=== PATIENT | male | born 1975 | race Hispanic/Latino ===

== ENCOUNTER → 2018-03-05 | Outpatient (CLI) | payer BC | END | disposition home or self-care (01) | LOC: OIH 12:45 | PROVIDERS: ATTEND Internal Medicine | DX: M47.812 Spondylosis without myelopathy or radiculopathy, cervical region (principal); M50.00 Cervical disc disorder with myelopathy, unspecified cervical region | CPT/HCPCS: 72050 ==

== ENCOUNTER → 2018-04-06 | Outpatient (CLI) | payer BC | END | disposition home or self-care (01) | LOC: RAH 12:40 | PROVIDERS: ATTEND Internal Medicine | DX: M47.12 Other spondylosis with myelopathy, cervical region (principal); M48.02 Spinal stenosis, cervical region; M50.223 Other cervical disc displacement at C6-C7 level; M25.78 Osteophyte, vertebrae | CPT/HCPCS: 72141 ==

== ENCOUNTER → 2020-02-02 | Outpatient (CLI) | payer BC | END | disposition home or self-care (01) | LOC: OIH 09:01 | PROVIDERS: ATTEND Internal Medicine | DX: S69.91XA Unspecified injury of right wrist, hand and finger(s), initial encounter (principal); M48.02 Spinal stenosis, cervical region; M47.22 Other spondylosis with radiculopathy, cervical region; X58.XXXA Exposure to other specified factors, initial encounter; Y93.89 Activity, other specified; Y92.89 Other specified places as the place of occurrence of the external cause; Y99.8 Other external cause status | CPT/HCPCS: 72040; 73100 ==

== ENCOUNTER 2023-02-06 06:42 | Day surgery (SDC) | payer BC ==
[2023-01-31 12:11] LABS: BASOPHILS # (AUTO) 0.04 K/uL (0.00-0.20); BASOPHILS % (AUTO) 0.7 % (0.0-5.0); EOSINOPHILS # (AUTO) 0.12 K/uL (0.00-0.70); HEMATOCRIT 45.6 % (42-54); IMMATURE GRANULOCYTE ABSOLUTE 0.02 K/uL (0-1); LYMPHOCYTES # (AUTO) 1.7 K/uL (1.0-4.8); LYMPHOCYTES % (AUTO) 28.6 % (21.0-51.0); MEAN CORPUSCULAR HEMOGLOBIN 29.9 pg (27.0-33.0); MEAN CORPUSCULAR HGB CONC 34.6 g/dL (32.0-36.0); MEAN CORPUSCULAR VOLUME 86.2 fL (79-99); MONOCYTES # (AUTO) 0.4 K/uL (0.1-1.0); MONOCYTES % (AUTO) 6.9 % (3.0-13.0); NEUTROPHILS # (AUTO) 3.8 K/uL (1.8-7.7); NEUTROPHILS % (AUTO) 61.5 % (40.0-77.0); PLATELET COUNT (AUTO) 211 K/uL (130-400); RED BLOOD CELL COUNT(AUTO) 5.29 MIL/uL (4.50-6.20); WHITE BLOOD COUNT (AUTO) 6.1 K/uL (4.8-10.8)
[2023-01-31 12:23] LABS: INR < 0.93 (0.85-1.15); PROTHROMBIN TIME 10.7 SEC (9.6-11.6)
[2023-01-31 12:25] LABS: PARTIAL THROMBOPLASTIN TIME 27.9 SEC (26.3-35.5)
[2023-01-31 12:31] LABS: CREATININE 0.8 mg/dL (0.5-1.5); POTASSIUM 3.7 mmol/L (3.5-5.1)
[2023-01-31 12:46] VITALS: BP 147/77; PULSE 96; RESP 18
[~2023-02-06] VITALS: Ht 165.1 cm; Wt 102.9 kg
[2023-02-06] VITALS (18 sets, daily range): BP systolic 84–139; BP diastolic 48–77; PULSE 59–84; RESP 10–18
[~2023-02-06 06:42] MED LIST: GLIM4TAB36 PO; INDO-16 PO; METF-444 PO; PANT40TA54 PO
[2023-02-06] MEDS ORDERED: 0.9%NACL 1000ML 1,000 ML IV ONE (07:07)
[2023-02-06] MEDS ORDERED: CEFAZOLIN SODIUM 1 GM VIAL ONE (07:07)
[2023-02-06] MEDS ORDERED: BACITRACIN 28.4 GM OINT TP ONE (07:35)
[2023-02-06] MEDS ORDERED: BUPIVACAINE/PF 0.25% 30ML VIAL IJ ONE (07:35)
[2023-02-06] MEDS ORDERED: SUCCINYLCHOLINE 200MG/10ML SYR ONE ×2 (08:27→08:50)
[2023-02-06] MEDS ORDERED: DEXAMETHASONE SOD PHOSPHATE 10MG/ML 1ML VIAL ONE (08:27)
[2023-02-06] MEDS ORDERED: LIDOCAINE PF 100MG/5ML (2%) SYRINGE 5ML ONE ×2 (08:27→08:30)
[2023-02-06] MEDS ORDERED: ONDANSETRON 4MG INJ ONE (08:28)
[2023-02-06] MEDS ORDERED: MIDAZOLAM HCL 1 MG/ML 2ML VIAL ONE (08:28)
[2023-02-06] MEDS ORDERED: GLYCOPYRROLATE 1 MG/5 ML SYRINGE ONE (08:28)
[2023-02-06] MEDS ORDERED: NEOSTIGMINE 5MG/5ML SYR IV ONE (08:28)
[2023-02-06] MEDS ORDERED: PROPOFOL 10 MG/ML 20ML VIAL IV ONE (08:28)
[2023-02-06] MEDS ORDERED: FENTANYL CITRATE PF 50 MCG/1 ML 2ML VIAL ONE ×2 (08:28→09:42)
[2023-02-06] MEDS ORDERED: ROCURONIUM 10MG/1ML SYR 10 MG/ML ML ONE (08:28)
[2023-02-06] MEDS ORDERED: CEFAZOLIN SODIUM 2 GM VIAL IVPB ONE (08:58)
[2023-02-06] MEDS ORDERED: PHENYLEPHRINE HCL 10 MG/ML 1ML VIAL IV ONE (09:40)
== END 2023-02-06 11:35 | disposition home or self-care (01) ==
LOC: DAH 06:42
PROVIDERS: ATTEND Urology
DX: N47.1 Phimosis (principal); E11.9 Type 2 diabetes mellitus without complications; M19.90 Unspecified osteoarthritis, unspecified site; K21.9 Gastro-esophageal reflux disease without esophagitis; F17.200 Nicotine dependence, unspecified, uncomplicated; Z79.01 Long term (current) use of anticoagulants; Z79.899 Other long term (current) drug therapy; Z79.84 Long term (current) use of oral hypoglycemic drugs; Z98.890 Other specified postprocedural states
CPT/HCPCS: 93005; 80048; 85025; 85610; 85730; 36415; 54161; 82948 ×2; A4606; J3010 ×2; J0690 ×2; J0330 ×2; J3490 ×2; J1100; J2710; J7030; J2001 ×2; J2250; J2704; J2405; J2371; A4215; A4223; A4222; A4221; A4663; A4600

== ENCOUNTER → 2023-12-03 | Outpatient (CLI) | payer BC ==
[~2023-12-03] MED LIST changes: +ACET-66 PO; +AEC81 PO; +ATOR40TA69 PO; +GABA100C PO; -INDO-16 PO; +LOSA25TA41 PO
== END | disposition home or self-care (01) ==
LOC: LAB 09:01
PROVIDERS: ATTEND Internal Medicine Cardiovascular Disease
DX: E11.9 Type 2 diabetes mellitus without complications (principal); E78.5 Hyperlipidemia, unspecified
CPT/HCPCS: 36415; 84443; 85378

== ENCOUNTER 2023-12-08 14:06 | Emergency (ER) | payer BC, OTHER ==
[~2023-12-08] VITALS: Ht 165.1 cm; Wt 104.3 kg
[2023-12-08 15:10] LABS: BASOPHILS # (AUTO) 0.03 K/uL (0.00-0.20); BASOPHILS % (AUTO) 0.5 % (0.0-5.0); EOSINOPHILS # (AUTO) 0.19 K/uL (0.00-0.70); EOSINOPHILS % (AUTO) 3.4 % (0.0-8.0); IMMATURE GRANULOCYTE ABSOLUTE 0.01 K/uL (0-1); LYMPHOCYTES # (AUTO) 1.6 K/uL (1.0-4.8); LYMPHOCYTES % (AUTO) 27.9 % (21.0-51.0); MEAN CORPUSCULAR HEMOGLOBIN 27.5 pg (27.0-33.0); MEAN CORPUSCULAR HGB CONC 33.2 g/dL (32.0-36.0); MONOCYTES # (AUTO) 0.5 K/uL (0.1-1.0); MONOCYTES % (AUTO) 8.1 % (3.0-13.0); NEUTROPHILS # (AUTO) 3.4 K/uL (1.8-7.7); NEUTROPHILS % (AUTO) 59.9 % (40.0-77.0); PLATELET COUNT (AUTO) 181 K/uL (130-400); RED BLOOD CELL COUNT(AUTO) 4.94 MIL/uL (4.50-6.20); RED CELL DISTRIBUTION WIDTH 14.2 % (11.0-15.5); WHITE BLOOD COUNT (AUTO) 5.6 K/uL (4.8-10.8)
[2023-12-08 15:23] LABS: CREATININE 0.8 mg/dL (0.5-1.3); POTASSIUM 3.9 mmol/L (3.5-5.1)
[2023-12-08 15:28] LABS: ALBUMIN 3.5 g/dL (3.5-5.0); BILIRUBIN,TOTAL 0.3 mg/dL (0.2-1.0); TOTAL PROTEIN, SERUM 7.3 g/dL (6.0-8.3)
[2023-12-08 15:35] LABS: PROTHROMBIN TIME 10.8 SEC (9.6-11.6)
[2023-12-08 15:36] LABS: PARTIAL THROMBOPLASTIN TIME 25.7 SEC (26.3-35.5)
[2023-12-08] MEDS ORDERED: HYDROCODONE/ACETAMINOPHEN 5/325 MG TAB PO ONE (16:00)
[2023-12-08] MEDS ORDERED: ONDANSETRON ODT 4MG TAB SL ONE (16:00)
[2023-12-08] MEDS ORDERED: IOHEXOL-350 75 ML VIAL IV ONE ×2 (16:11→16:35)
[2023-12-08 16:39] LABS: APPEARANCE,URINE CLEAR (CLEAR); BILIRUBIN,URINE NEGATIVE (NEGATIVE); COLOR,URINE COLORLESS (YELLOW); GLUCOSE, URINE (UA) >=1000 mg/dL (NEGATIVE); KETONES,URINE 5 mg/dL (NEGATIVE); LEUKOCYTE ESTERASE ,URINE NEGATIVE Leu/uL (NEGATIVE); NITRATE,URINE NEGATIVE (NEGATIVE); OCCULT BLOOD,URINE NEGATIVE (NEGATIVE); PROTEIN,URINE NEGATIVE (NEGATIVE); UROBILINOGEN,URINE 0.2 mg/dL (0.2-1.0)
[2023-12-08 16:46] LABS: ADD UA MICROSCOPIC YES
[2023-12-08 16:48] LABS: MUCUS,URINE RARE LPF (None Seen); RBC,URINE 0-1 /HPF (0-1); WBC,URINE 0-1 /HPF (0-1)
[2023-12-08 18:15] VITALS: BP 148/89; PULSE 95; RESP 17; O2SAT 99
== END 2023-12-08 18:14 | disposition home or self-care (01) ==
LOC: EDH 14:06
DX: R79.89 Other specified abnormal findings of blood chemistry (principal); E11.9 Type 2 diabetes mellitus without complications; E78.00 Pure hypercholesterolemia, unspecified; K21.9 Gastro-esophageal reflux disease without esophagitis; I25.2 Old myocardial infarction; Z79.82 Long term (current) use of aspirin; Z79.84 Long term (current) use of oral hypoglycemic drugs; Z79.899 Other long term (current) drug therapy; Z95.1 Presence of aortocoronary bypass graft
CPT/HCPCS: 99284; 71270; 80053; 85025; 85610; 85730; 81001; 36415; Q9967 ×2

== ENCOUNTER 2024-01-09 16:58 | Emergency (ER) | payer BC ==
[~2024-01-09] VITALS: Ht 165.1 cm; Wt 104.3 kg
[2024-01-09 17:47] LABS: BASOPHILS # (AUTO) 0.04 K/uL (0.00-0.20); BASOPHILS % (AUTO) 0.6 % (0.0-5.0); EOSINOPHILS # (AUTO) 0.18 K/uL (0.00-0.70); EOSINOPHILS % (AUTO) 2.6 % (0.0-8.0); HEMATOCRIT 44.3 % (42-54); IMMATURE GRANULOCYTE ABSOLUTE 0.02 K/uL (0-1); LYMPHOCYTES # (AUTO) 1.9 K/uL (1.0-4.8); LYMPHOCYTES % (AUTO) 27.6 % (21.0-51.0); MEAN CORPUSCULAR HEMOGLOBIN 27.2 pg (27.0-33.0); MEAN CORPUSCULAR HGB CONC 33.2 g/dL (32.0-36.0); MONOCYTES # (AUTO) 0.5 K/uL (0.1-1.0); MONOCYTES % (AUTO) 6.8 % (3.0-13.0); NEUTROPHILS # (AUTO) 4.3 K/uL (1.8-7.7); NEUTROPHILS % (AUTO) 62.1 % (40.0-77.0); PLATELET COUNT (AUTO) 195 K/uL (130-400); RED CELL DISTRIBUTION WIDTH 14.2 % (11.0-15.5); WHITE BLOOD COUNT (AUTO) 6.9 K/uL (4.8-10.8)
[2024-01-09 17:56] LABS: CREATININE 1.1 mg/dL (0.5-1.3); POTASSIUM 4.2 mmol/L (3.5-5.1)
[2024-01-09 17:57] LABS: INR 0.96 (0.85-1.15); PROTHROMBIN TIME 10.4 SEC (9.6-11.6)
[2024-01-09 17:58] LABS: PARTIAL THROMBOPLASTIN TIME 25.6 SEC (26.3-35.5)
[2024-01-09] MEDS ORDERED: IOHEXOL-350 75 ML VIAL IV ONE (18:09)
[2024-01-09 19:39] VITALS: BP 138/81; PULSE 75; RESP 18; O2SAT 98
[2024-01-09 19:45] LABS: ADD UA MICROSCOPIC YES; APPEARANCE,URINE CLEAR (CLEAR); BILIRUBIN,URINE NEGATIVE (NEGATIVE); COLOR,URINE COLORLESS (YELLOW); GLUCOSE, URINE (UA) >=1000 mg/dL (NEGATIVE); KETONES,URINE 5 mg/dL (NEGATIVE); LEUKOCYTE ESTERASE ,URINE NEGATIVE Leu/uL (NEGATIVE); NITRATE,URINE NEGATIVE (NEGATIVE); OCCULT BLOOD,URINE NEGATIVE (NEGATIVE); PH,URINE 5.5 (5.0-8.0); PROTEIN,URINE NEGATIVE (NEGATIVE); UROBILINOGEN,URINE 0.2 mg/dL (0.2-1.0)
[2024-01-09 19:48] LABS: MUCUS,URINE RARE LPF (None Seen); RBC,URINE 0-1 /HPF (0-1); WBC,URINE 0-1 /HPF (0-1)
== END 2024-01-09 20:23 | disposition home or self-care (01) ==
LOC: EDH 16:58
DX: R07.89 Other chest pain (principal); E11.9 Type 2 diabetes mellitus without complications; K21.9 Gastro-esophageal reflux disease without esophagitis; E78.00 Pure hypercholesterolemia, unspecified; I11.9 Hypertensive heart disease without heart failure; I25.2 Old myocardial infarction; M79.662 Pain in left lower leg; M79.661 Pain in right lower leg; Z98.890 Other specified postprocedural states; Z95.1 Presence of aortocoronary bypass graft
CPT/HCPCS: 99285; 93970; 71270; 84484 ×2; 80048; 85025; 85610; 85730; 81001; 36415; 93005; Q9967

== ENCOUNTER → 2024-01-09 | Outpatient (CLI) | payer BC | END | disposition home or self-care (01) | LOC: LAB 09:40 | PROVIDERS: ATTEND Internal Medicine Cardiovascular Disease | DX: E11.9 Type 2 diabetes mellitus without complications (principal); E78.5 Hyperlipidemia, unspecified; I21.4 Non-ST elevation (NSTEMI) myocardial infarction | CPT/HCPCS: 36415; 84439; 85378 ==

== ENCOUNTER → 2024-05-06 | Outpatient (CLI) | payer BC ==
--- NOTE | 2024-05-06 10:50 | HMCIMG ---
US ABDOMINAL COMPLETE HISTORY: Left upper abdominal pain COMPARISON: 11/03/2023 TECHNIQUE: Multiple transverse and longitudinal ultrasound images of the abdomen were obtained. FINDINGS: Midportion of the abdominal aorta is not well seen due to overlying bowel gas limiting evaluation. Flow is seen in the inferior vena cava. The visualized portion of the pancreas is within normal limits. Liver is echogenic consistent with liver parenchymal disease. Liver measures 18 cm. Portal vein is patent. Common duct measures 6 mm. Gallbladder has been removed. Both kidneys are seen. Right kidney measures 12.2 x 6.5 x 5.8 cm. Left kidney measures 13.1 x 6 x 6 cm. No hydronephrosis is seen of the both kidneys. Spleen measures 12 cm. The spleen is grossly unremarkable. IMPRESSION: 1. Postcholecystectomy. No ductal dilatation is seen. 2. No hydronephrosis is seen.
== END | disposition home or self-care (01) ==
LOC: RAH 08:22
PROVIDERS: ATTEND Internal Medicine
DX: R10.12 Left upper quadrant pain (principal); R10.13 Epigastric pain; Z90.49 Acquired absence of other specified parts of digestive tract
CPT/HCPCS: 76700

== ENCOUNTER → 2025-04-18 | Outpatient (CLI) | payer BC ==
--- NOTE | 2025-04-19 02:51 | HMCIMG ---
STUDY: X-RAY OF THE LEFT SHOULDER, 2 VIEWS HISTORY: Left shoulder impingement syndrome. TECHNIQUE: Two views of the left shoulder are submitted for interpretation. COMPARISON: None provided. FINDINGS: Bones and joints: Mild osteoarthritic changes are present in the acromioclavicular and glenohumeral joints with joint space narrowing and marginal osteophyte formation. No acute fracture or dislocation is identified. The humeral head remains well seated within the glenoid. No aggressive osseous lesion is seen. Soft tissues: Periarticular soft tissues are unremarkable without soft tissue calcification or radiopaque foreign body. 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 * No acute fracture or dislocation. * If symptoms persist or there is concern for rotator cuff or labral pathology, further evaluation with MRI of the left shoulder is suggested. /[place]
== END | disposition home or self-care (01) ==
LOC: RAH 11:05
PROVIDERS: ATTEND Internal Medicine
DX: M19.012 Primary osteoarthritis, left shoulder (principal); M75.42 Impingement syndrome of left shoulder; M25.712 Osteophyte, left shoulder
CPT/HCPCS: 73030

== ENCOUNTER → 2025-05-13 | Outpatient (CLI) | payer BC ==
--- NOTE | 2025-05-13 18:36 | HMCIMG ---
EXAM: MR SHOULDER LEFT CLINICAL HISTORY: Left shoulder pain with suspected impingement syndrome. TECHNIQUE: Multiplanar, multisequence MRI of the left shoulder was performed without intravenous contrast. IV CONTRAST: NONE COMPARISON: Left shoulder radiographs dated 04/18/2025. FINDINGS: ROTATOR CUFF: The subscapularis tendon shows thickening with intrasubstance edema, consistent with tendinosis without tear. A small calcific focus is present within the supraspinatus tendon, unchanged from the prior radiograph and compatible with stable calcific tendinitis. The infraspinatus and teres minor tendons appear intact. No rotator cuff tear is identified. There is no cuff muscle atrophy. GLENOHUMERAL JOINT: Articular cartilage intact. No joint effusion. No rotator interval edema. The coracohumeral ligament and the glenohumeral ligaments demonstrate normal morphology and signal. LABRUM: The glenoid labrum is unremarkable. BICEPS TENDON: The extra-articular biceps tendon is in the bicipital groove. There is moderate effusion within the biceps tendon sheath. The intra-articular segment of the long head of the biceps tendon demonstrates thickening with intrasubstance edema, compatible with biceps tendinosis without tear. ACROMIOCLAVICULAR JOINT: AC joint alignment is preserved. There is no degenerative change. BONES: No fracture, dislocation, or marrow edema is identified. SUBACROMIAL-SUBDELTOID SPACE: Moderate subacromialsubdeltoid bursal effusion is present. Mild subcoracoid bursal effusion is also noted. OTHER SOFT TISSUES: Soft-tissue changes including tendon edema and bursal fluid are new compared with the prior examination. IMPRESSION: 1. Stable calcific tendinitis of the supraspinatus tendon. 2. Subscapularis tendinosis without tear. 3. Biceps tendinosis with associated moderate bicipital bursal effusion. 4. Moderate subacromialsubdeltoid bursitis and mild subcoracoid bursitis. 5. No rotator cuff tear, no labral tear, and no fracture or dislocation. 6. As compared with the prior radiograph of the left shoulder dated April 18, 2025, the calcific tendinitis of the supraspinatus is stable since the prior examination while the rest of the findings are new. /[place]
== END | disposition home or self-care (01) ==
LOC: RAH 08:52
PROVIDERS: ATTEND Internal Medicine
DX: M75.42 Impingement syndrome of left shoulder (principal); M67.814 Other specified disorders of tendon, left shoulder; M75.52 Bursitis of left shoulder; R60.0 Localized edema; M25.412 Effusion, left shoulder
CPT/HCPCS: 73221